=== PATIENT | male | born 1990 | race African-American/Black ===

== ENCOUNTER 2021-06-14 10:21 | Emergency (ER) | payer MEDICAID ==
[~2021-06-14] VITALS: Ht 182.9 cm; Wt 83.0 kg
[2021-06-14 10:29] VITALS: BP 124/69
[2021-06-14] MEDS ORDERED: BENZ-13 PO (11:21)
[2021-06-14] MEDS ORDERED: AMOX-430 PO (11:21)
--- NOTE | 2021-06-14 11:35 | NUR ---
Patient discharged to home in stable condition. Written and verbal after care instructions given. Patient verbalizes understanding of instruction. Pt ambulatory with a steady gait
== END 2021-06-14 11:36 | disposition home or self-care (01) ==
LOC: ER 10:26
DX: H66.93 Otitis media, unspecified, bilateral (principal); J06.9 Acute upper respiratory infection, unspecified; Z91.013 Allergy to seafood; Z79.899 Other long term (current) drug therapy

== ENCOUNTER 2022-01-10 21:11 | Emergency (ER) | payer MEDICAID ==
[~2022-01-10] VITALS: Ht 182.9 cm; Wt 83.0 kg
[~2022-01-10 21:11] MED LIST: AMOX-430 PO; BENZ-13 PO
[2022-01-10 22:15] VITALS: BP 143/70
--- NOTE | 2022-01-10 23:40 | NUR ---
Patient discharged to home in stable condition. Written and verbal after care instructions given. Patient verbalizes understanding of instruction. Pt ambulatory with a steady gait w/ an aide of crutches
== END 2022-01-10 23:41 | disposition home or self-care (01) ==
LOC: ER 21:22
DX: S90.32XA Contusion of left foot, initial encounter (principal); M25.572 Pain in left ankle and joints of left foot; Z91.013 Allergy to seafood; W01.0XXA Fall on same level from slipping, tripping and stumbling without subsequent striking against object, initial encounter; Y93.89 Activity, other specified; Y92.89 Other specified places as the place of occurrence of the external cause; Y99.8 Other external cause status
CPT/HCPCS: 73610-TC; 73630-TC

== ENCOUNTER 2022-08-18 13:12 | Emergency (ER) | payer MEDICAID, OTHER ==
[~2022-08-18] VITALS: Ht 182.9 cm; Wt 84.4 kg
[2022-08-18 13:50] VITALS: BP 146/75
[2022-08-18] MEDS ORDERED: FLUC150T PO (14:24)
== END 2022-08-18 14:30 | disposition home or self-care (01) ==
LOC: ER 13:20
DX: B35.8 Other dermatophytoses (principal); M13.879 Other specified arthritis, unspecified ankle and foot; Z91.013 Allergy to seafood; Z79.899 Other long term (current) drug therapy